=== PATIENT | female | born 1945 | race Asian ===

== ENCOUNTER 2023-12-13 08:10 | Day surgery (SDC) | payer OTHER, SELFPAY ==
[2023-12-13] VITALS (14 sets, daily range): BP systolic 137–192; BP diastolic 31–72; BMI 23.3
[2023-12-13] MEDS: BACTROBAN NASAL 1 GRAM NASAL (08:47)
[2023-12-13] MEDS: PERIDEX 0.12% ORAL RINSE 15 ML PO (08:47)
[2023-12-13 08:59] LABS: Hematocrit 31.2 % (37.0-47.0); Hemoglobin 10.7 g/dL (12.0-16.0); Mean Corp Hgb Conc. 34.3 g/dL (33.0-37.0); Mean Corpuscular Hgb 32.8 pg (27.0-31.0); Mean Corpuscular Volume 95.7 fL (81.0-99.0); Mean Platelet Volume 9.4 fL (7.4-10.4); Platelet Count 221 10^3/uL (130-400); Red Blood Cell Count 3.26 10^6/uL (4.20-5.40); Red Cell Dist. Width 13.6 % (11.5-14.5); White Blood Cell Count 7.9 10^3/uL (4.8-10.8)
[2023-12-13 09:06] LABS: Glucose - Point of Care 108 mg/dl (70-99)
[2023-12-13 09:08] LABS: INR 0.95; PT 12.9 Sec (11.4-14.6)
--- NOTE | 2023-12-13 09:13 | W.SUR.PREOP ---
Pre-Operative Surgical Note
-
I have examined this patient prior to the performance of the scheduled procedure.
The patient's condition is unchanged from the time of the current History and
Physical and the patient is able to undergo the scheduled procedure.
[2023-12-13 09:26] LABS: Blood Urea Nitrogen 79 mg/dl (7-17); Calcium 8.7 mg/dl (8.4-10.2); Carbon Dioxide 19 mmol/L (22-30); Chloride 116 mmol/L (98-107); Estimated Creatinine Clearance 7 ml/min; Glucose 116 mg/dl (70-99); Potassium 4.9 mmol/L (3.5-5.1); Sodium 136 mmol/L (135-145); eGFR 9.62
--- NOTE | 2023-12-13 11:46 | OR.RPT ---
Operative Report
Operative Report
PROCEDURE DATE: 12/13/2023
Preoperative diagnosis: CKD stage IV
Postoperative diagnosis: Same
Procedure: Left upper extremity upper arm arteriovenous graft with [place] Propaten 7mm x 4mm graft.
Surgeon: Gregorio
Computational Physicist: ROSALIE Akers. Required for assistance with entirety of procedure including traction/countertraction, following of suture line, assistance with closure.
Complications: None
Anesthesia: General
Indications for procedure:
Nearing hemodialysis needs, referred for AV access creation. Risk/benefits/alternatives also discussed. Patient and her family understood all wish to proceed.
Description of procedure:
Patient was identified brought to the operating room placed on the table in supine position. After the adequate administration of anesthesia and perioperative antibiotics she was prepped and draped in the standard surgical fashion. A standard
preoperative timeout was undertaken and everybody was in agreement the plan.
Initially, I had mapped the vein of the upper arms myself prior to prepping and draping. The left upper extremity basilic vein looks marginal. The other veins in the upper extremity on the left side appeared small. I difficulty visualizing the
right upper extremity basilic vein though the mid vein mapping had shown reasonable size. It looks like the deep vein was reasonable, but I could not identify the basilic vein. Therefore, given her age and need for AV access, I felt AV graft may
be better but I would explore the basilic vein on the left side.
A longitudinal incision was made in the left distal medial upper arm that was carried through the skin subcutaneous tissue. The basilic vein was identified and carefully dissected away from surrounding structures take great care to avoid any injury
to the structures. It looked marginal at best. I felt that at this point using this vein may work but likely would require assistance, and given her age and dialysis needs, graft would be better given the marginal status of this vein. Therefore,
through this incision I deepened my dissection through the fascial layer and identified the brachial artery. This was carefully dissected away from surrounding structures take great care to avoid any injury to the structures. Vesseloops were
passed around approximately distally. Of note it was a small artery. I then made a longitudinal incision in the medial proximal upper arm that was carried through the skin subcutaneous tissue. Then through the fascial layer. Identified the
brachial/axillary vein (though this could have been the confluence of the basilic vein was slightly hard to tell but it was in the brachial sheath and was also adjacent to the nerve/artery structures). I carefully dissected a suitable segment, but
did not dissected circumferentially to avoid any vasospasm.
Now I created a subcutaneous tunnel between the 2 sites using a Fabiola tunneler. I then passed a 7 mm x 4 mm tapered [place] Propaten graft through the tunnel with the 7 mm and at the venous side, and the 4 mm end at the arterial side. Next I gave
the patient 3000 units of intravenous heparin. I then double obtain tight my Vesseloops on the brachial artery in my distal incision. I then made an arteriotomy with a [place] blade and extended using a micro Sarmiento scissor. I then beveled the 4 mm
end of the graft and sewed an end to side anastomosis using [place] CV 6 suture in a running fashion. I completed and tied down my suture line. Next I released [place] vessel loops. I backbled the graft and then clamped it in the distal incision just
beyond the anastomosis.
Next, I now carefully circumferentially dissected the vein proximally distally and placed a bulldog clamp distally (in the proximal upper arm near the axilla), and use a vessel loop which was double looped and tightened in the proximal outflow of
the vein. I then made a venotomy with a [place] blade and extended using a micro [place] scissor. I then trimmed and beveled the graft (7 mm end). I then sewed an end to side anastomosis to the vein using a running [place] CV 6 suture. Prior to
completing and tying down my suture line I backbled the [place] vein, I flushed out the graft. I then instilled heparinized saline and then completed and tied down my suture line. Next I released my bulldog clamp on the vein, and released my clamp
on the artery. I then released my other vessel loop on the vein. There was good flow in the graft. This was confirmed by Doppler. There was good dopplerable ulnar and radial signals at the wrist. At this point is very satisfied. I irrigated
both incision sites. I achieved and confirmed full hemostasis. We then closed in layers using 3-0 Vicryl deep dermal layer followed by 4-0 Monocryl subcuticular stitch. Dermabond was applied. The patient tolerated the procedure well.
--- NOTE | 2023-12-13 11:55 | W.SUR.POST ---
Surgical Immediate Post Op
Note
Pre Op Diagnosis: ESRD
Post Op Diagnosis: ESRD
Procedure Performed: Left upper extremity AV graft creation
Primary Surgeon: Zhang Perkins MD
emergency veterinary assistant: Marcelina Akers AIRCRA[employer] GENERAL REPAIR MECHANIC-C
Anesthesia: GETA
Estimated Blood Loss: 5 mL
Fluids: See anesthesia flowsheet
Drains/Shunts: N/A
Specimens/Cultures: N/A
Doppler/Duplex/Angio (Y/N): Y, Doppler
Complications: None
Operative Findings: Positive Doppler signal in AV graft
[2023-12-13 12:12] LABS: Glucose - Point of Care 120 mg/dl (70-99)
[2023-12-13] MEDS: ROXICODONE 5 MG PO (13:17)
== END 2023-12-13 14:35 | disposition home or self-care (01) ==
LOC: CATH 08:10
PROVIDERS: ATTENDING PHYSICIAN Surgery Vascular Surgery; FAMILY PHYSICIAN Internal Medicine; OTHER PHYSICIAN Internal Medicine Cardiovascular Disease
DX: I12.9 Hypertensive chronic kidney disease with stage 1 through stage 4 chronic kidney disease, or unspecified chronic kidney disease (principal); E11.22 Type 2 diabetes mellitus with diabetic chronic kidney disease; N18.4 Chronic kidney disease, stage 4 (severe); Z79.4 Long term (current) use of insulin
CPT/HCPCS: 36830; 80048; 82962; 85027; 85610; 85730; 86850; 86900; 86901; 93005

== ENCOUNTER → 2024-07-15 12:38 | Outpatient (REF) | payer OTHER, SELFPAY | LOC: RAD 12:38 | PROVIDERS: ATTENDING PHYSICIAN Surgery Vascular Surgery; PRIMARYCARE PHYSICIAN Internal Medicine | DX: I77.0 Arteriovenous fistula, acquired (principal) | CPT/HCPCS: 93990 ==

== ENCOUNTER → 2024-09-04 09:14 | Outpatient (REF) | payer OTHER, SELFPAY | LOC: RAD 09:14 | PROVIDERS: ATTENDING PHYSICIAN Surgery Vascular Surgery; FAMILY PHYSICIAN Internal Medicine | DX: I77.0 Arteriovenous fistula, acquired (principal); Z01.818 Encounter for other preprocedural examination | CPT/HCPCS: 93985 ==

== ENCOUNTER 2024-09-11 08:01 | Day surgery (SDC) | payer OTHER, SELFPAY ==
[2024-09-11] VITALS (15 sets, daily range): BP systolic 93–159; BP diastolic 27–57; BMI 23.7
--- NOTE | 2024-09-11 08:22 | HP.FOC2 ---
Focused History & Physical
Chief Complaint
HPI:
Chief Complaint: End-stage renal disease
HPI / Indication for Planned Procedure: This is an 79-year-old female with end-stage renal disease requiring creation of AV fistula for HD access. Her vasculature does not lend to revision of a fistula on the left upper extremity thus plan is to
proceed with right upper extremity AV fistula creation/possible graft with Dr. Zhang Perkins. Patient denies recent illness, trauma, or hospitalization. Denies nausea, vomiting, fever, chills, chest pain, shortness of breath, or cough. She started
dialysis in 2023 via her left upper extremity AV graft, which worked for roughly 6 months until she developed clot at graft which was declotted at a dialysis access center but then subsequently reclotted shortly thereafter. She now has a
right IJ tunneled dialysis catheter for HD access.
Relevant Past Medical History: Diabetes, Hypertension and Other (Neuropathy, CKD, syncope, hyperlipidemia, diabetic retinopathy, hypothyroidism)
Relevant Social History: Negative
Relevant Family History: Negative
Relevant Past Surgical History: Positive for (Left upper extremity AV graft with core propaten on 12/13/2023)
Review of Systems
Review of Pertinent Systems: All Systems Negative
Medication
See Medication form for detailed medications: Yes
Medication List (including Herbals & OTC):
atorvastatin 80 mg tablet 40 mg PO BID 12/10/23
insulin aspar prot-insulin aspart 100 unit/mL (70-30) subcutaneous pen (Novolog Mix 70-30FlexPen U-100) 15 unit SC DAILY 12/10/23
levothyroxine 50 mcg tablet 50 mcg PO DAILY 12/10/23
metoprolol tartrate 50 mg tablet 50 mg PO BID 12/10/23
insulin aspar prot-insulin aspart 100 unit/mL (70-30) subcutaneous pen (Novolog Mix 70-30FlexPen U-100) 10 unit SC QPM 12/13/23
amlodipine 5 mg tablet 5 mg PO DAILY 09/08/24
clopidogrel 75 mg tablet 75 mg PO DAILY 09/08/24
ezetimibe 10 mg tablet 10 mg PO DAILY 09/08/24
gabapentin 100 mg capsule 100 mg PO HS 09/08/24
irbesartan 300 mg tablet 300 mg PO DAILY 09/08/24
nitroglycerin 0.4 mg sublingual tablet 0.4 mg sublingual Q5-15M PRN chest pain 09/08/24
Medications Reviewed: Yes
Allergies and Reactions
Patient has Allergies: No
Noted Allergies and Reactions:
Allergy/AdvReac Type Severity Reaction Status Date / Time
No Known Allergies Allergy Verified 09/08/24 15:40
Pertinent Physical Exam
All Other Systems: Negative
Head/Neck: Normal
Lungs: Normal (Bilateral lungs CTA)
Heart: Normal (RRR, no murmur)
Abdomen: Normal (Nontender and nondistended)
Extremities: Other (Left upper extremity with AV graft clotted, bilateral radial pulse +1 palpable)
Neurological: Normal
Diagnosis / Assessment
Diagnosis: 79-year-old female with end-stage renal disease requiring creation of hemodialysis access in the form of AV fistula.
Plan / Procedure
Plan: Will proceed with scheduled right upper extremity AV fistula creation with possible graft with Dr. Zhang Perkins as scheduled.
Anesthesia/Sedation to be done by Anesthesia Provider: Yes
[2024-09-11 08:37] LABS: Hematocrit 35.4 % (37.0-47.0); Hemoglobin 12.2 g/dL (12.0-16.0); Mean Corp Hgb Conc. 34.5 g/dL (33.0-37.0); Mean Corpuscular Hgb 33.3 pg (27.0-31.0); Mean Corpuscular Volume 96.7 fL (81.0-99.0); Mean Platelet Volume 9.5 fL (7.4-10.4); Platelet Count 220 10^3/uL (130-400); Red Blood Cell Count 3.66 10^6/uL (4.20-5.40); Red Cell Dist. Width 12.9 % (11.5-14.5); White Blood Cell Count 7.7 10^3/uL (4.8-10.8)
[2024-09-11] MEDS: BACTROBAN NASAL 1 GRAM NASAL (08:41)
[2024-09-11] MEDS: PERIDEX 0.12% ORAL RINSE 15 ML PO (08:41)
[2024-09-11] MEDS: NSS 500 IV (08:42)
[2024-09-11 08:52] LABS: Blood Urea Nitrogen 47 mg/dl (7-17); Calcium 9.7 mg/dl (8.4-10.2); Carbon Dioxide 23 mmol/L (22-30); Chloride 98 mmol/L (98-107); Glucose 202 mg/dl (70-99); Potassium 4.4 mmol/L (3.5-5.1); Sodium 137 mmol/L (135-145); eGFR 8.84
[2024-09-11 09:09] LABS: Glucose - Point of Care 199 mg/dl (70-99)
[2024-09-11] MEDS: NOVOLOG vial 2 UNITS SC ×2 (09:35→13:14)
[2024-09-11 10:47] LABS: INR 0.96; PT 12.8 Sec (11.4-14.6)
[2024-09-11 10:48] LABS: APTT 30.5 Sec (23.4-35.0)
--- NOTE | 2024-09-11 12:21 | W.SUR.POST ---
Surgical Immediate Post Op
Note
Pre Op Diagnosis: End-stage renal disease
Post Op Diagnosis: Same
Procedure Performed: Right upper extremity AV graft
Primary Surgeon: Gregorio MATOS
Assist: Oswald BARBER
Anesthesia: LMA
Estimated Blood Loss: 25cc
Fluids: See anesthesia flowsheet
Drains/Shunts: None
Specimens/Cultures: None
Doppler/Duplex/Angio (Y/N): Y
Complications: None
Operative Findings: + Doppler signal
--- NOTE | 2024-09-11 12:56 | OR.RPT ---
Operative Report
Operative Report
PROCEDURE DATE: 09/11/2024
Preoperative diagnosis: End-stage renal disease on hemodialysis
Postoperative diagnosis: Same
Procedure: Creation of right upper extremity brachial axillary upper arm AV graft with 7 mm x 4 mm tapered [place] Propaten graft.
Surgeon: Gregorio
Lead Custodian: Marcelina Akers ACCESS DEVELOPER, required for all aspects of procedure including assistance with traction/countertraction, following a suture line, assistance with closure.
Complications: None
Anesthesia: General
Indications for procedure:
End-stage renal disease on hemodialysis. Had left upper extremity AV graft prior. Worked for several months and then thrombosed. Patient to come to the office for new access creation. Risk/benefits/alternatives of right upper extremity creation
were discussed. She understood all wish to proceed.
Description of procedure:
Patient was identified brought to the operating room placed on the table in supine position. Note after the induction of anesthesia, I used the ultrasound probe to map the right upper extremity veins. Cephalic vein in the upper arm was very small.
Especially in the antecubital area. The basilic vein was small but potentially usable but it joined the deep system very early in the mid to distal upper arm. Forearm veins also are small. Therefore I felt that using upper arm graft would be
better. After the adequate administration of anesthesia she was prepped and draped in the standard surgical fashion. A standard preoperative timeout was undertaken and everybody was in agreement the plan. A longitudinal incision was made in the
medial distal right upper arm that was carried through skin subcutaneous tissue. The incision was then carried through the fascial layer. The brachial artery was identified and carefully dissected away from surrounding structures and great care to
avoid any injury to structures. It was severely calcified. It felt like eccentric calcification but it felt reasonably hard that it would make it somewhat challenging to clamp. I dissected more cephalad and palpated more distally and it felt
calcified throughout. Therefore I did not know that I would find a softer spot anywhere else. After I had circumferentially dissected approximately distally and passed Vesseloops around it, I made a longitudinal incision in the medial proximal
upper arm that was then carried through skin subcutaneous tissue. I again dissected through the fascial layer and then identified the deep vein. I carefully dissected away from surrounding structures to great care to avoid any injury to the
structures. I passed a vessel loop around proximally distally. I now used a Fabiola tunneler to create a subcutaneous tunnel between the 2 incision sites and passed a [place] Propaten 7 mm x 4 mm tapered graft with the 4 mm and at the arterial
exposure site. Next I gave the patient 3000's of intravenous heparin. I then double looped and tightened my Vesseloops on the artery proximally distally. I made an arteriotomy with 11 blade which was somewhat challenging due to the calcific
nature of the plaque. I noted that the Vesseloops were not hemostatic. I therefore then had to place profunda clamps proximally and distally. As such I was able to gain vascular control. I now extended my arteriotomy with a [place] scissor. I was
as I suspected friable eccentric plaque throughout the vessel but the lumen was not narrowed at all. I knew this would be challenging but I felt that this was likely the only option here to sew. Therefore I beveled the 4 mm end of the graft and
sewed an end-to-side anastomosis using CV 6 [place] suture in a running fashion. I made sure to take good bites of the artery side given the friable plaque laden nature of the wall. Prior to completing and tying down my suture line I backbled and
forward bled the [place] artery and then completed and tied down my suture line. I then released my arterial clamps proximally distally after clamping the graft distally. There is excellent pulsatile flow into the graft. There is a couple bleeding
points on the suture line which I repaired with [id number] [place] CV 6 suture. Now I had obtained hemostasis. There is a good pulse in the brachial artery distal to the anastomosis as well. At this point I then turned my attention to the
proximal upper arm incision. I double-lumen tightened my Vesseloops on the vein proximally distally. I then made a venotomy with an 11 blade and extended using a [place] scissor. I beveled the 7 mm end of the graft and sewed an end-to-side
anastomosis from the graft to the vein using a running [place] CV 6 suture. Prior to completing and tying down my suture line I backbled the [place] venous system and then flushed out the graft. I then completed and tied down my suture line. And then
released the Vesseloops on the vein and then released my graft clamp. There was now good thrill in the graft/venous anastomosis. There was also a good radial artery Doppler signal at the wrist. At this point I satisfied. I to meticulously
achieve hemostasis due to needle hole bleeding/oozing at both suture lines. However, was able to achieve full hemostasis. We then closed in layers using 3-0 Vicryl running deep dermal layer suture followed by 4-0 Monocryl subcuticular stitch.
Dermabond was applied to both sites. The patient tolerated the procedure well.
[2024-09-11 12:59] LABS: Glucose - Point of Care 193 mg/dl (70-99)
[2024-09-11] MEDS: ZOFRAN 4 MG IV (13:10)
[2024-09-11] MEDS: DILAUDID 0.25 MG IV ×2 (13:44→14:21)
[2024-09-11] MEDS: ROXICODONE 5 MG PO (15:00)
== END 2024-09-11 15:35 | disposition home or self-care (01) ==
LOC: CATH 08:01
PROVIDERS: ATTENDING PHYSICIAN Surgery Vascular Surgery; FAMILY PHYSICIAN Internal Medicine; OTHER PHYSICIAN Internal Medicine Cardiovascular Disease
DX: N18.6 End stage renal disease (principal); E11.22 Type 2 diabetes mellitus with diabetic chronic kidney disease; I12.0 Hypertensive chronic kidney disease with stage 5 chronic kidney disease or end stage renal disease; Z79.4 Long term (current) use of insulin; Z79.890 Hormone replacement therapy; Z79.02 Long term (current) use of antithrombotics/antiplatelets; Z79.899 Other long term (current) drug therapy; E11.40 Type 2 diabetes mellitus with diabetic neuropathy, unspecified; E11.319 Type 2 diabetes mellitus with unspecified diabetic retinopathy without macular edema; E78.5 Hyperlipidemia, unspecified; E03.9 Hypothyroidism, unspecified
CPT/HCPCS: 36830; 80048; 82962; 85027; 85610; 85730; 86850; 86900; 86901; 93005; C1768

== ENCOUNTER → 2024-12-02 12:23 | Outpatient (REF) | payer OTHER, SELFPAY | LOC: RAD 12:23 | PROVIDERS: ATTENDING PHYSICIAN Surgery Vascular Surgery; FAMILY PHYSICIAN Internal Medicine | DX: I77.0 Arteriovenous fistula, acquired (principal) | CPT/HCPCS: 93990 ==

== ENCOUNTER → 2024-12-18 11:05 | Outpatient (REF) | payer OTHER, SELFPAY | LOC: RAD 11:05 | PROVIDERS: ATTENDING PHYSICIAN Surgery Vascular Surgery; FAMILY PHYSICIAN Internal Medicine | DX: I77.0 Arteriovenous fistula, acquired (principal) | CPT/HCPCS: 93990 ==